=== PATIENT | female | born 1980 ===

== ENCOUNTER 2017-03-04 20:12 | Emergency (ER) | payer SELFPAY ==
[2017-03-04 20:19] VITALS: BP 146/78; PULSE 94; RESP 20; TEMP 99.1; O2SAT 100
--- NOTE | 2017-03-04 20:47 | ED PDOC ---
HPI: Psych/Substance Abuse Time Seen by Provider: 03/04/17 20:25 Chief Complaint (Nursing): Anxiety Chief Complaint (Provider): anxiety History Per: Patient, EMS History/Exam Limitations: no limitations Onset/Duration Of Symptoms: Days (3) Associated Symptoms: denies: Suicidal Thoughts Additional Complaint(s): Carissa Rodriguez is a 37 y/o female, with a past medical history of Anxiety, presenting to the ER on 03/04/2017 with request to refill prescription drugs including Prozac, Trileptal, Neurontin, Klonopin, and Vistaril. Patient also requested one dose of her medications in ED as well as prescriptions to go home with. She states she has not been able to visit a pharmacy because she is too anxious to leave her house. Denies any chest pain, SOB, dyspnea on exertion, suicidal ideation or homicidal ideation. Past Medical History Reviewed: Historical Data, Nursing Documentation, Vital Signs Vital Signs: Last Vital Signs Temp 99.1 F 03/04/17 20:15 Pulse 94 H 03/04/17 20:15 Resp 20 03/04/17 20:15 BP 146/78 03/04/17 20:15 Pulse Ox 100 03/04/17 20:15 - Medical History PMH: No Chronic Diseases - Surgical History Other surgeries: left ankle surgery - Family History Family History: States: No Known Family Hx - Living Arrangements Living Arrangements: Alone - Social History Current smoker - smoking cessation education provided: No Alcohol: None Drugs: Denies - Home Medications Home Medications: Ambulatory Orders Medication Instructions Recorded clonazePAM [clonAZEPAM] 1 mg PO DAILY #5 tab 03/04/17 - Allergies Allergies/Adverse Reactions: Allergies Allergy/AdvReac Type Severity Reaction Status Date / Time risperidone [From Risperdal] AdvReac ANGIOEDEMA Verified 03/04/17 20:19 ziprasidone [From Geodon] AdvReac ANGIOEDEMA Verified 03/04/17 20:19 Review of Systems ROS Statement: Except As Marked, All Systems Reviewed And Found Negative Constitutional: Negative for: Fever Cardiovascular: Negative for: Chest Pain Respiratory: Negative for: Shortness of Breath Gastrointestinal: Negative for: Nausea, Vomiting Psych: Positive for: Anxiety, Other (needs psych refills ). Negative for: Suicidal ideation Physical Exam - Reviewed Nursing Documentation Reviewed: Yes Vital Signs Reviewed: Yes - Physical Exam Appears: Positive for: Non-toxic, No Acute Distress Head Exam: Positive for: ATRAUMATIC, NORMOCEPHALIC Skin: Positive for: Normal Color Eye Exam: Positive for: Normal appearance, EOMI, PERRL Neck: Positive for: Normal, Painless ROM, Supple Cardiovascular/Chest: Positive for: Regular Rate, Rhythm. Negative for: Murmur Respiratory: Positive for: Normal Breath Sounds. Negative for: Respiratory Distress Extremity: Positive for: Normal ROM. Negative for: Deformity Neurologic/Psych: Positive for: Alert, Oriented. Negative for: Motor/Sensory Deficits - Laboratory Results Urine POC: Negative - ECG O2 Sat by Pulse Oximetry: 100 Pulse Ox Interpretation: Normal Medical Decision Making Medical Decision Makin:25 Initial Impression- 37 y/o female with pmhx of anxiety requesting medication Refill Initial Plan- * Crisis Evaluation Patient was seen by crisis counselor and case was discussed with psychiatrist strategic solutions consultant, Dr. Hayes who states to provide patient 1 mg PO klonopin dose in ED along with rx for 5 tabs. Patient was given referrals for outpatient follow up. [facility] history reviewed, patient has not filled rx for klonopin since December of 2016. Documented by Michelle Walker, acting as a scribe for Tracey Mathews PA-C All medical record entries made by the Scribe were at my direction and personally dictated by me. I have reviewed the chart and agree that the record accurately reflects my personal performance of the history, physical exam, medical decision making, and the department course for this patient. I have also personally directed, reviewed, and agree with the discharge instructions and disposition. Disposition - Clinical Impression Clinical Impression: Anxiety - Patient ED Disposition Is Patient to be Admitted: No Counseled Patient/Family Regarding: Diagnosis, Need For Followup, Rx Given - Disposition Referrals: [facility] [Outside] Disposition: Routine/Home Disposition Time: 21:10 Condition: STABLE Additional Instructions: Take rx meds as directed. Follow up as directed. Prescriptions: clonazePAM [clonAZEPAM] 1 mg PO DAILY #5 tab Instructions: Anxiety (ED)
== END 2017-03-04 21:45 | disposition home or self-care (01) ==
LOC: H.ER 20:12
DX: F41.9 Anxiety disorder, unspecified (principal); Z76.0 Encounter for issue of repeat prescription

== ENCOUNTER 2017-03-27 18:29 | Emergency (ER) | payer MEDICAID ==
[2017-03-27 18:45] VITALS: BP 119/69; PULSE 68; RESP 20; TEMP 98.9; O2SAT 98
--- NOTE | 2017-03-27 19:20 | ED PDOC ---
HPI: General Adult Time Seen by Provider: 03/27/17 18:54 Chief Complaint (Nursing): Med Refill Chief Complaint (Provider): Med Refill History Per: Patient History/Exam Limitations: no limitations Onset/Duration Of Symptoms: Days Additional Complaint(s): 37 y/o female presents to the emergency department for medication refill of Sean because she ran out of medicine. States she has an appointment with her doctor on , 03/30/2017. Patient visited this ER on 03/04/2017 and prescribed 5 tablets of clonazePAM 1 mg and advised to make an appointment with her doctor to get a months worth of medication but she says she "forgot" to go to the last appointment because "it happens." Patient was verbally told that the ER has new rules and unable to prescribed controlled substances. Denies any further medical complaints. Past Medical History Reviewed: Historical Data, Nursing Documentation, Vital Signs Vital Signs: Last Vital Signs Temp 98.9 F 03/27/17 18:42 Pulse 68 03/27/17 18:42 Resp 20 03/27/17 18:42 BP 119/69 03/27/17 18:42 Pulse Ox 98 03/27/17 19:23 - Medical History PMH: Bipolar Disorder Denies: Diabetes, Hepatitis, HIV, HTN, Seizures, Sexually Transmitted Disease - Surgical History Surgical History: No Surg Hx - Family History Family History: States: Unknown Family Hx - Social History Current smoker - smoking cessation education provided: No Alcohol: None Drugs: Denies - Immunization History Hx Tetanus Toxoid Vaccination: No Hx Influenza Vaccination: No Hx Pneumococcal Vaccination: No - Home Medications Home Medications: Ambulatory Orders Medication Instructions Recorded clonazePAM [clonAZEPAM] 1 mg PO DAILY #5 tab 03/04/17 Ibuprofen [Motrin] 600 mg PO TID #21 tab 03/08/17 - Allergies Allergies/Adverse Reactions: Allergies Allergy/AdvReac Type Severity Reaction Status Date / Time risperidone [From Risperdal] AdvReac ANGIOEDEMA Verified 03/04/17 20:19 ziprasidone [From Geodon] AdvReac ANGIOEDEMA Verified 03/04/17 20:19 Review of Systems ROS Statement: Except As Marked, All Systems Reviewed And Found Negative - ECG O2 Sat by Pulse Oximetry: 98 (RA) Pulse Ox Interpretation: Normal Medical Decision Making Medical Decision Making: Time: 18:54 Initial Impression: Medication Refill Initial Plan: --Patient advised she is not able to get a refill on controlled medication due to new laws. Crisis evaluation competed. Dr. De Leon aware and does not want additional refill of medication given. Scribe Attestation: Documented by Samantha Zarco, acting as a scribe for Juju Coffman PA-C. Provider Scribe Attestation: All medical record entries made by the Scribe were at my direction and personally dictated by me. I have reviewed the chart and agree that the record accurately reflects my personal performance of the history, physical exam, medical decision making, and the department course for this patient. I have also personally directed, reviewed, and agree with the discharge instructions and disposition. Disposition - Clinical Impression Clinical Impression: Anxiety Counseled Patient/Family Regarding: Diagnosis, Need For Followup - Disposition Referrals: [facility] [Outside] [facility] [Outside] Disposition: Routine/Home Disposition Time: 19:26 Condition: GOOD Additional Instructions: Follow-up with psychiatrist. Instructions: Anxiety (ED)
== END 2017-03-27 21:24 | disposition home or self-care (01) ==
LOC: H.ER 18:29
DX: F41.9 Anxiety disorder, unspecified (principal); Z00.8 Encounter for other general examination